=== PATIENT | female | born 1985 | race Caucasian/White ===

== ENCOUNTER 2018-08-24 23:51 | Emergency (ER) | payer BC ==
[~2018-08-24] VITALS: Ht 157.5 cm; Wt 74.8 kg
[2018-08-25] MEDS ORDERED: XELJANZ XR11 MG
[2018-08-25] MEDS ORDERED: ZOFRAN4 MG PO (02:24)
[2018-08-25] MEDS ORDERED: CEFUROXIME500 MG PO (02:24)
== END 2018-08-25 02:37 ==
LOC: ER 23:51
DX: N39.0 Urinary tract infection, site not specified (principal); B96.89 Other specified bacterial agents as the cause of diseases classified elsewhere; R10.11 Right upper quadrant pain; R10.31 Right lower quadrant pain